=== PATIENT | male | born 1980 | race American Indian/Alaskan Native ===

== ENCOUNTER 2021-01-24 14:01 | Emergency (ER) | payer SELFPAY ==
[2021-01-24 14:38] VITALS: BP 137/98
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
== END 2021-01-24 16:05 | disposition home or self-care (01) ==
LOC: ED 14:01
DX: T15.11XA Foreign body in conjunctival sac, right eye, initial encounter (principal); Z90.49 Acquired absence of other specified parts of digestive tract; F17.200 Nicotine dependence, unspecified, uncomplicated; Z79.899 Other long term (current) drug therapy; W45.8XXA Other foreign body or object entering through skin, initial encounter; Y93.89 Activity, other specified; Y92.89 Other specified places as the place of occurrence of the external cause; Y99.8 Other external cause status
CPT/HCPCS: 99283